=== PATIENT | female | born 1990 | race Caucasian/White ===

== ENCOUNTER 2025-06-26 21:20 | Emergency (ER) | payer OTHER, SELFPAY ==
[2025-06-26 22:06] LABS: Glucose, Urine (Dipstick) Normal (Negative); Leukocyte 500 (Negative); Protein, Urine (Dipstick) 500 mg/dl (Neg-Trace); Specific Gravity, Urine 1.025 (1.005-1.030)
[2025-06-26 22:15] LABS: Bacteria/HPF 2+ HPF (None Seen); CAUTI Indications for Culture Dysuria,urgency,freq; WBC/HPF Greater than 50 HPF (0-3)
[2025-06-26 22:17] LABS: Urine Culture Reflex Yes Yes
[2025-06-26] MEDS ORDERED: Droperidol 5 MG/2 ML VIAL ONE (22:27)
[2025-06-26] MEDS ORDERED: diphenhydrAMINE 50 MG/ML VIAL ONE (22:28)
[2025-06-26 22:57] LABS: #Basophils 0.04 10x3/uL (0.0-0.2); #Eosinophils 0.05 10x3/uL (0.0-0.5); #Monocytes 0.92 10x3/uL (0.0-1.1); #Neutrophils 9.15 10x3/uL (1.5-8.4); %Basophils 0.3 % (0.0-2.0); %Eosinophils 0.4 % (0.0-6.0); %Lymphocytes 10.8 % (18.0-47.0); %Monocytes 8.0 % (0.0-10.0); %Neutrophils 80.2 % (40.0-75.0); Hematocrit 36.2 % (34.9-44.5); Hemoglobin 12.2 g/dL (12.0-15.5); Mean Corpuscular Hemoglobin 30.0 pg (27.0-33.0); Mean Corpuscular Volume 89.2 fL (81.6-98.3); Platelet Count 187 10x3/uL (150-450); Red Blood Cell (RBC) Count 4.06 10x6/uL (3.90-5.03); White Blood Cell (WBC) Count 11.43 10x3/uL (3.5-10.5)
[2025-06-26 23:00] LABS: BHCG - Serum Negative (NEGATIVE); Pregs Control Background? CLEAR/WHITE (CLR/WHITE); Pregs Control Bar Appear? YES (CONTROL BAR)
[2025-06-26 23:05] LABS: Anion Gap 11 mmol/L (10-20); BUN (Urea Nitrogen) 12 mg/dL (7.0-18.7); Calc. Creatinine Clearance 0 mL/min (70-130); Carbon Dioxide 24 mmol/L (22-29); Chloride 108 mmol/L (98-107); Potassium 3.5 mmol/L (3.5-5.1); Sodium 139 mmol/L (136-145)
[2025-06-26 23:06] LABS: Calcium 8.4 mg/dL (7.8-10.44); Glucose 92 mg/dL (70-105)
== END 2025-06-27 00:05 | disposition home or self-care (01) ==
LOC: CSHERS 21:20
DX: N39.0 Urinary tract infection, site not specified (principal); Z87.891 Personal history of nicotine dependence
CPT/HCPCS: 36415; 80048; 81001; 83605; 84703; 85025; 87086; 96374; 96375; J1200; J1790

== ENCOUNTER 2025-07-23 18:00 | Emergency (ER) | payer SELFPAY ==
[2025-07-23 18:47] LABS: #Basophils 0.04 10x3/uL (0.0-0.2); #Eosinophils 0.09 10x3/uL (0.0-0.5); #Monocytes 0.57 10x3/uL (0.0-1.1); #Neutrophils 7.26 10x3/uL (1.5-8.4); %Basophils 0.5 % (0.0-2.0); %Eosinophils 1.0 % (0.0-6.0); %Lymphocytes 9.7 % (18.0-47.0); %Monocytes 6.4 % (0.0-10.0); %Neutrophils 82.2 % (40.0-75.0); Hematocrit 42.7 % (34.9-44.5); Hemoglobin 13.7 g/dL (12.0-15.5); Mean Corpuscular Hemoglobin 29.3 pg (27.0-33.0); Mean Corpuscular Volume 91.2 fL (81.6-98.3); Platelet Count 269 10x3/uL (150-450); Red Blood Cell (RBC) Count 4.68 10x6/uL (3.90-5.03); White Blood Cell (WBC) Count 8.84 10x3/uL (3.5-10.5)
[2025-07-23 19:16] LABS: Anion Gap 12 mmol/L (10-20); BUN (Urea Nitrogen) 15 mg/dL (7.0-18.7); Carbon Dioxide 27 mmol/L (22-29); Chloride 107 mmol/L (98-107); Potassium 3.7 mmol/L (3.5-5.1); Sodium 142 mmol/L (136-145)
[2025-07-23 19:17] LABS: ALT (SGPT) 8 U/L (Less than 34); AST (SGOT) 18 U/L (11-34); Albumin 4.2 g/dL (3.1-4.5); Alkaline Phosphatase 52 U/L (40-110); Bilirubin, Total 0.7 mg/dL (0.3-1.2); Calc. Creatinine Clearance 0 mL/min (70-130); Calcium 9.0 mg/dL (7.8-10.44); Globulin 2.8 g/dL (2.4-3.5); Glucose 97 mg/dL (70-105); Lipase 10 U/L (8-78)
[2025-07-23 19:23] LABS: Glucose, Urine (Dipstick) Normal (Negative); Leukocyte Negative (Negative); Protein, Urine (Dipstick) 30 mg/dl (Neg-Trace); Specific Gravity, Urine 1.030 (1.005-1.030)
[2025-07-23 19:31] LABS: Pregnancy Test - Urine (BHCG) Negative (Negative); Pregu Control Background? CLEAR/WHITE (CLR/WHITE); Pregu Control Bar Appear? YES (CONTROL BAR)
[2025-07-23 19:43] LABS: Bacteria/HPF None Seen HPF (None Seen); CAUTI Indications for Culture Pelvic or flank pain; Mucous/LPF 1+ LPF (<2+); RBC/HPF 0-3 HPF (0-3); WBC/HPF 0-3 HPF (0-3)
[2025-07-23 19:44] LABS: Urine Culture Reflex No No
[2025-07-23] MEDS ORDERED: Ketorolac Tromethamine 30 MG (1 mL) VIAL ONE (19:47)
== END 2025-07-23 22:45 | disposition home or self-care (01) ==
LOC: CSHERS 18:00
DX: R10.2 Pelvic and perineal pain (principal); F17.290 Nicotine dependence, other tobacco product, uncomplicated
CPT/HCPCS: 36415; 76856; 80053; 81001; 81025; 83690; 85025; 93976; 96361; 96374; J1885

== ENCOUNTER 2025-08-28 14:42 | Emergency (ER) | payer OTHER, SELFPAY ==
[2025-08-28] MEDS ORDERED: Ketorolac Tromethamine 30 MG (1 mL) VIAL ONE (15:37)
[2025-08-28 15:43] LABS: #Basophils 0.05 10x3/uL (0.0-0.2); #Eosinophils 0.10 10x3/uL (0.0-0.5); #Monocytes 0.58 10x3/uL (0.0-1.1); #Neutrophils 8.34 10x3/uL (1.5-8.4); %Basophils 0.5 % (0.0-2.0); %Eosinophils 0.9 % (0.0-6.0); %Lymphocytes 16.4 % (18.0-47.0); %Monocytes 5.3 % (0.0-10.0); %Neutrophils 76.5 % (40.0-75.0); Hematocrit 36.6 % (34.9-44.5); Hemoglobin 12.0 g/dL (12.0-15.5); Mean Corpuscular Hemoglobin 29.4 pg (27.0-33.0); Mean Corpuscular Volume 89.7 fL (81.6-98.3); Platelet Count 222 10x3/uL (150-450); Red Blood Cell (RBC) Count 4.08 10x6/uL (3.90-5.03); White Blood Cell (WBC) Count 10.90 10x3/uL (3.5-10.5)
[2025-08-28 15:48] LABS: BHCG - Serum Negative (NEGATIVE); Pregs Control Background? CLEAR/WHITE (CLR/WHITE); Pregs Control Bar Appear? YES (CONTROL BAR)
[2025-08-28 15:55] LABS: ALT (SGPT) 9 U/L (Less than 34); AST (SGOT) 15 U/L (11-34); Albumin 3.8 g/dL (3.1-4.5); Alkaline Phosphatase 58 U/L (40-110); Anion Gap 13 mmol/L (10-20); BUN (Urea Nitrogen) 16 mg/dL (7.0-18.7); Bilirubin, Total 0.4 mg/dL (0.3-1.2); Calc. Creatinine Clearance 0 mL/min (70-130); Calcium 8.6 mg/dL (7.8-10.44); Carbon Dioxide 23 mmol/L (22-29); Chloride 107 mmol/L (98-107); Globulin 2.5 g/dL (2.4-3.5); Glucose 109 mg/dL (70-105); Lipase 7 U/L (8-78); Potassium 3.4 mmol/L (3.5-5.1); Sodium 140 mmol/L (136-145)
[2025-08-28 16:12] LABS: Glucose, Urine (Dipstick) Normal (Negative); Leukocyte Negative (Negative); Protein, Urine (Dipstick) Negative (Neg-Trace); Specific Gravity, Urine 1.015 (1.005-1.030)
[2025-08-28 17:04] LABS: Bacteria/HPF Rare-Few HPF (None Seen); CAUTI Indications for Culture Pelvic or flank pain; RBC/HPF None Seen HPF (0-3); WBC/HPF 0-3 HPF (0-3)
[2025-08-28 17:05] LABS: Urine Culture Reflex No No
[2025-08-28 17:22] LABS: Acetaminophen Less than 10 mcg/mL (Less than 10); Salicylate Less than 8.0 mg/dL (Less than 8.0)
[2025-08-28 17:23] LABS: Cocaine Metabolite Screen Negative (Negative); THC/Cannabinoid Screen PRELIM POSITIVE (Negative); Tricyclic Screen Negative (Negative)
== END 2025-08-28 19:09 | disposition home or self-care (01) ==
LOC: CSHERS 14:42
DX: R11.16 Cannabis hyperemesis syndrome (principal); F17.290 Nicotine dependence, other tobacco product, uncomplicated
CPT/HCPCS: 74176; 80053; 80306; 80307; 81001; 83605; 83690; 84703; 85025; 96361; 96365; 96375; J1885; J2550; J3010